=== PATIENT | male | born 1980 | race American Indian/Alaskan Native ===

== ENCOUNTER 2018-12-22 16:54 | Emergency (ER) | payer OTHER ==
--- NOTE | 2018-12-22 17:12 | Event Note ---
ED Screening Note ED Screening Note: a/c hives ? etio This initial assessment/diagnostic orders/clinical plan/treatment(s) is/are subject to change based on patients health status, clinical progression and re- assessment by fellow clinical providers in the ED. Further treatment and workup at subsequent clinical providers discretion. Patient/guardian urged not to elope from the ED as their condition may be serious if not clinically assessed and managed. Initial orders include: rx referral for follow up
--- NOTE | 2018-12-22 17:55 | Emergency Department Report ---
- General Chief complaint: Skin Rash Stated complaint: RASH ALL OVER/PAIN Time Seen by Provider: 12/22/18 17:08 Source: patient Mode of arrival: Ambulatory Limitations: No Limitations - History of Present Illness Initial comments: Patient is a 38-year-old male presents to the emergency room with complaints of a diffuse rash that began in August. He states it occurs intermittently. States the rash itches and duggan. He states he has taken Benadryl on and off but it makes him drowsy. He states he has never had this before. he states he just moved to [place] in August and began experiencing the rash after moving. States he has used different soaps and detergents from what he has used before. His only past medical history is migraines. Denies any daily medications or mumtaz rgies to medications. - Related Data Previous Rx's Medication Instructions Recorded Last Taken Type Cetirizine HCl [ZyrTEC 10mg cap] 10 mg PO DAILY #30 capsule 12/22/18 Unknown Rx Hydrocortisone [Hydrocortisone 1 applicatio TP BID #1 oint...g. 12/22/18 Unknown Rx 2.5% OINT] hydrOXYzine PAMOATE [Vistaril] 25 mg PO Q6HR PRN #14 capsule 12/22/18 Unknown Rx predniSONE [Deltasone] 40 mg PO QDAY 7 Days #14 tab 12/22/18 Unknown Rx Allergies Allergy/AdvReac Type Severity Reaction Status Date / Time No Known Allergies Allergy Unverified 12/22/18 17:08 Abscess Boil HPI - HPI Chief Complaint: Skin Rash Stated Complaint: RASH ALL OVER/PAIN Time Seen by Provider: 12/22/18 17:08 Home Medications: Previous Rx's Medication Instructions Recorded Last Taken Type Cetirizine HCl [ZyrTEC 10mg cap] 10 mg PO DAILY #30 capsule 12/22/18 Unknown Rx Hydrocortisone [Hydrocortisone 1 applicatio TP BID #1 oint...g. 12/22/18 Unknown Rx 2.5% OINT] hydrOXYzine PAMOATE [Vistaril] 25 mg PO Q6HR PRN #14 capsule 12/22/18 Unknown Rx predniSONE [Deltasone] 40 mg PO QDAY 7 Days #14 tab 12/22/18 Unknown Rx Allergies/Adverse Reactions: Allergies Allergy/AdvReac Type Severity Reaction Status Date / Time No Known Allergies Allergy Unverified 12/22/18 17:08 ED Review of Systems ROS: Stated complaint: RASH ALL OVER/PAIN Other details as noted in HPI Comment: All other systems reviewed and negative ED Past Medical Hx - Past Medical History Previous Medical History?: No - Surgical History Past Surgical History?: Yes Additional Surgical History: Right ankle surgery - Social History Smoking Status: Never Smoker Substance Use Type: None - Medications Home Medications: Home Medications Medication Instructions Recorded Confirmed Last Taken Type Cetirizine HCl [ZyrTEC 10mg cap] 10 mg PO DAILY #30 capsule 12/22/18 Unknown Rx Hydrocortisone [Hydrocortisone 1 applicatio TP BID #1 oint...g. 12/22/18 Unknown Rx 2.5% OINT] hydrOXYzine PAMOATE [Vistaril] 25 mg PO Q6HR PRN #14 capsule 12/22/18 Unknown Rx predniSONE [Deltasone] 40 mg PO QDAY 7 Days #14 tab 12/22/18 Unknown Rx ED Physical Exam - General Limitations: No Limitations General appearance: alert, in no apparent distress - Head Head exam: Present: atraumatic, normocephalic - Eye Eye exam: Present: normal appearance, PERRL, EOMI - ENT ENT exam: Present: mucous membranes moist - Neurological Exam Neurological exam: Present: alert, oriented X3 - Psychiatric Psychiatric exam: Present: normal affect, normal mood - Skin Skin exam: Present: warm, dry, urticaria (present on the abdomen, chest, and back, none on the BUE or BLE) ED Course Vital Signs 12/22/18 17:09 Temperature 98.7 F Pulse Rate 88 Respiratory 18 Rate Blood Pressure 125/80 O2 Sat by Pulse 100 Oximetry ED Medical Decision Making - Medical Decision Making Patient is a 38-year-old male presents to the emergency room with complaints of a diffuse rash that began in August. He states it occurs intermittently. States the rash itches and duggan. He states he has taken Benadryl on and off but it makes him drowsy. He states he has never had this before. he states he just moved to [place] in August and began experiencing the rash after moving. States he has used different soaps and detergents from what he has used before. His only past medical history is migraines. Denies any daily medications or aller gies to medications. vitals are normal. pt has an urticarial rash on the abdomen, chest, and back. appears to be allergy related. pt given prescriptions for prednisone, hydrocortisone ointment, zyrtec and vistaril. advised to take medication as prescribed. discussed with pt to use a dove non scented soap and a sensitive skin non scented laundry detergent. advised pt to follow up with a primary care doctor in the next 2-3 days and undergo allergy testing. - Differential Diagnosis allergic reaction, contact derm, irritant derm, urticaria Critical care attestation.: If time is entered above; I have spent that time in minutes in the direct care of this critically ill patient, excluding procedure time. ED Disposition Clinical Impression: Urticaria Disposition: - TO HOME OR SELFCARE Is pt being admited?: No Does the pt Need Aspirin: No Condition: Stable Instructions: Urticaria (ED) Additional Instructions: please take medication as prescribed. use a dove non scented soap and a sensitive skin non scented laundry detergent. Follow up with a primary care doctor in the next 2-3 days and undergo allergy testing. Prescriptions: predniSONE [Deltasone] 40 mg PO QDAY 7 Days #14 tab Hydrocortisone [Hydrocortisone 2.5% OINT] 1 applicatio TP BID #1 oint...g. hydrOXYzine PAMOATE [Vistaril] 25 mg PO Q6HR PRN #14 capsule PRN Reason: Itching Cetirizine HCl [ZyrTEC 10mg cap] 10 mg PO DAILY #30 capsule Referrals: BEBO ARMSTRONG MD [Primary Care Provider] - 2-3 Days [facility] [Outside] - 2-3 Days [facility] [Outside] - 2-3 Days Time of Disposition: 17:56 Print Language: MALAYSIAN
[2018-12-22 18:12] VITALS: BP 130/84
== END 2018-12-22 18:06 | disposition home or self-care (01) ==
LOC: ED 16:54
DX: L50.9 Urticaria, unspecified (principal); Z98.890 Other specified postprocedural states; Z79.899 Other long term (current) drug therapy
CPT/HCPCS: 99282

== ENCOUNTER 2019-04-18 21:19 | Emergency (ER) | payer SELFPAY ==
[2019-04-18 21:27] VITALS: BP 124/85
--- NOTE | 2019-04-18 21:31 | Event Note ---
ED Screening Note Date of service: 04/18/19 Time: 21:29 ED Screening Note: 38 y o male presents to ED cc of right ankle swelling and pain This initial assessment/diagnostic orders/clinical plan/treatment(s) is/are subject to change based on patients health status, clinical progression and re- assessment by fellow clinical providers in the ED. Further treatment and workup at subsequent clinical providers discretion. Patient/guardian urged not to elope from the ED as their condition may be serious if not clinically assessed and managed. Initial orders include: xr ankle
--- NOTE | 2019-04-18 22:29 | XRay Report ---
Right ankle-2 views INDICATION: swollen ankle. COMPARISON: None. IMPRESSION: Mild swelling about the ankle with no acute fracture identified. Normal alignment. Old postoperative bimalleolar change with no hardware complication. Signer Name: Geoff Emerson MD Signed: 04/18/2019 10:24 PM Workstation Name: [id number]
[2019-04-18] MEDS ORDERED: IBUPROFEN 600 MG TAB PO ONE (22:38)
[2019-04-18] MEDS ORDERED: ACETAMINOPHEN 500 MG TAB PO ONE (22:38)
--- NOTE | 2019-04-18 23:19 | Emergency Department Report ---
ED Extremity Problem HPI - General Chief complaint: Extremity Injury, Lower Stated complaint: RIGHT ANKLE SWOLLEN/PAINFUL Source: patient Mode of arrival: Ambulatory Limitations: No Limitations - History of Present Illness Initial comments: Patient is up at 8-year-old male with a history of chronic right ankle pain from an old right ankle injury and status post prosthetic metallic plate placement presents to the ED with acute suspicion of his chronic right ankle pain and swelling for the last 12 hours. Patient states that he woke up with severe right ankle pennate significant swelling and was unable dwell weight over 12 hours ago. Patient states that he has been taking ibuprofen intermittently for the pain. Patient denies fall, traumatic injury, nausea, vomiting, chest pain or shortness of breath, numbness and tingling or weakness of right upper quadrant food. Patient however states that his job entails walking on floors and this may have aggravated his uncle pain. Patient states that the pain is worse with any active range of motion or palpation or weight-bearing. MD Complaint: extremity pain (right ankle), extremity swelling (right ankle), joint swelling (right ankle), joint paint (right ankle) -: Sudden, hour(s) (12) Location: right (right ankle), lower extremity (right ankle) History of Same: Yes -: Yes arthralgia Severity scale (0 -10): 7 Quality: aching, sharp Consistency: constant Improves with: nothing Worsens with: weight bearing, walking, exertion, palpation Associated Symptoms: denies other symptoms, arthralgias. denies: chest pain, shortness of breath, fever, myalgias, rash, other - Related Data Previous Rx's Medication Instructions Recorded Last Taken Type Cetirizine HCl [ZyrTEC 10mg cap] 10 mg PO DAILY #30 capsule 12/22/18 Unknown Rx Hydrocortisone [Hydrocortisone 1 applicatio TP BID #1 oint...g. 12/22/18 Unknown Rx 2.5% OINT] hydrOXYzine PAMOATE [Vistaril] 25 mg PO Q6HR PRN #14 capsule 12/22/18 Unknown Rx predniSONE [Deltasone] 40 mg PO QDAY 7 Days #14 tab 12/22/18 Unknown Rx Ibuprofen [Motrin] 800 mg PO Q8HR PRN #30 tablet 04/18/19 Unknown Rx predniSONE [Deltasone] 40 mg PO QDAY #10 tab 04/18/19 Unknown Rx tiZANidine [Zanaflex 4mg TAB] 4 mg PO Q8H PRN #21 tablet 04/18/19 Unknown Rx traMADoL [Ultram] 50 mg PO Q6HR PRN #12 tablet 04/18/19 Unknown Rx Allergies Allergy/AdvReac Type Severity Reaction Status Date / Time No Known Allergies Allergy Verified 04/18/19 21:23 ED Review of Systems ROS: Stated complaint: RIGHT ANKLE SWOLLEN/PAINFUL Other details as noted in HPI Constitutional: denies: chills, fever Eyes: denies: eye pain, eye discharge, vision change ENT: denies: ear pain, throat pain Respiratory: denies: cough, shortness of breath, wheezing Cardiovascular: denies: chest pain, palpitations Endocrine: no symptoms reported Gastrointestinal: denies: abdominal pain, nausea, diarrhea Genitourinary: denies: urgency, dysuria Musculoskeletal: joint swelling (right ankle), arthralgia (right ankle). denies: back pain Skin: denies: rash, lesions Neurological: denies: headache, weakness, paresthesias Psychiatric: denies: anxiety, depression Hematological/Lymphatic: denies: easy bleeding, easy bruising ED Past Medical Hx - Surgical History Additional Surgical History: Right ankle surgery - Social History Smoking Status: Never Smoker Substance Use Type: Marijuana - Medications Home Medications: Home Medications Medication Instructions Recorded Confirmed Last Taken Type Cetirizine HCl [ZyrTEC 10mg cap] 10 mg PO DAILY #30 capsule 12/22/18 Unknown Rx Hydrocortisone [Hydrocortisone 1 applicatio TP BID #1 oint...g. 12/22/18 Unknown Rx 2.5% OINT] hydrOXYzine PAMOATE [Vistaril] 25 mg PO Q6HR PRN #14 capsule 12/22/18 Unknown Rx predniSONE [Deltasone] 40 mg PO QDAY 7 Days #14 tab 12/22/18 Unknown Rx Ibuprofen [Motrin] 800 mg PO Q8HR PRN #30 tablet 04/18/19 Unknown Rx predniSONE [Deltasone] 40 mg PO QDAY #10 tab 04/18/19 Unknown Rx tiZANidine [Zanaflex 4mg TAB] 4 mg PO Q8H PRN #21 tablet 04/18/19 Unknown Rx traMADoL [Ultram] 50 mg PO Q6HR PRN #12 tablet 04/18/19 Unknown Rx ED Physical Exam - General Limitations: No Limitations General appearance: alert, in no apparent distress - Head Head exam: Present: atraumatic, normocephalic, normal inspection - Eye Eye exam: Present: normal appearance, PERRL, EOMI Pupils: Present: normal accommodation - ENT ENT exam: Present: normal exam, normal orophraynx, mucous membranes moist, TM's normal bilaterally, normal external ear exam - Neck Neck exam: Present: normal inspection, full ROM - Respiratory Respiratory exam: Present: normal lung sounds bilaterally. Absent: respiratory distress, wheezes, rales, stridor, chest wall tenderness, accessory muscle use, prolonged expiratory - Cardiovascular Cardiovascular Exam: Present: regular rate, normal rhythm, normal heart sounds. Absent: systolic murmur, diastolic murmur, rubs, gallop - GI/Abdominal GI/Abdominal exam: Present: soft, normal bowel sounds. Absent: tenderness, guarding, hypoactive bowel sounds, mass - Rectal Rectal exam: Present: deferred - Extremities Exam Extremities exam: Present: normal inspection, tenderness (palpable right ankle tenderness with moderate swelling and limited range of motion due to pain), normal capillary refill, joint swelling (right ankle swelling). Absent: full ROM (Limited range of motion due to pain) - Back Exam Back exam: Present: normal inspection, full ROM. Absent: tenderness, muscle spasm - Neurological Exam Neurological exam: Present: alert, oriented X3, CN II-XII intact, normal gait, reflexes normal - Psychiatric Psychiatric exam: Present: normal affect, normal mood - Skin Skin exam: Present: warm, dry, intact, normal color. Absent: rash ED Course Vital Signs 04/18/19 21:25 Temperature 97.4 F L Pulse Rate 64 Respiratory 18 Rate Blood Pressure 124/85 O2 Sat by Pulse 98 Oximetry ED Medical Decision Making - Radiology Data Radiology results: report reviewed, image reviewed Findings [facility] [address] [place] [address] XRay Report Signed Patient: CARRIE WYLIE MR#: [id number] : 1980 Acct:[id number] Age/Sex: 38 / M ADM Date: 04/18/19 Loc: ED Attending Dr: Ordering Physician: ED MD LEE ANN Date of Service: 04/18/19 Procedure(s): XR ankle 2V RT Accession Number(s): [id number] cc: ED DOC, Fluoro Time In Minutes: Right ankle-2 views INDICATION: swollen ankle. COMPARISON: None. IMPRESSION: Mild swelling about the ankle with no acute fracture identified. Normal alignment. Old postoperative bimalleolar change with no hardware complication. Signer Name: Geoff Emerson MD Signed: 04/18/2019 10:24 PM Workstation Name: [id number] Transcribed By: KANCHAN Dictated By: Geoff Emerson MD Electronically Authenticated By: Geoff Emerson MD Signed Date/Time: 04/18/19 2509 - Medical Decision Making This is a 38-year-old male with a history of chronic right ankle pain from an old injury presents to the ED with acute exacerbation of the right ankle pain for the last 12 loss. In the ED, patient is alert and oriented 3 in destruction and distress but appears to be in pain. Patient was treated for pain in the ED and right ankle x-ray shows mild swelling about the ankle with no acute fracture identified. Normal alignment. Old postoperative bimalleolar change with no hardware complication. Patient is a right ankle splint and Donnie wrap and the patient discharged home on pain medications and muscle relaxants and advised to follow-up with his primary care physician in 5-7 days for reevaluation or return to the ED immediately if symptoms get worse. - Differential Diagnosis Ankle sprain; Muscle strain; DJD of ankle; Ankle fracture Critical care attestation.: If time is entered above; I have spent that time in minutes in the direct care of this critically ill patient, excluding procedure time. 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 Return to the ED immediately if symptoms get worse. Prescriptions: predniSONE [Deltasone] 40 mg PO QDAY #10 tab Ibuprofen [Motrin] 800 mg PO Q8HR PRN #30 tablet PRN Reason: Pain , Severe (7-10) traMADoL [Ultram] 50 mg PO Q6HR PRN #12 tablet PRN Reason: Pain tiZANidine [Zanaflex 4mg TAB] 4 mg PO Q8H PRN #21 tablet PRN Reason: Muscle Spasm Referrals: [facility] [Outside] - 3-5 Days Forms: Work/School Release Form(ED) Time of Disposition: 23:24 Print Language: MALTESE
== END 2019-04-18 23:40 | disposition home or self-care (01) ==
LOC: ED 21:19
DX: S93.401A Sprain of unspecified ligament of right ankle, initial encounter (principal); M19.071 Primary osteoarthritis, right ankle and foot; Z98.890 Other specified postprocedural states; F12.10 Cannabis abuse, uncomplicated; Z79.1 Long term (current) use of non-steroidal anti-inflammatories (NSAID); Z79.899 Other long term (current) drug therapy; X58.XXXA Exposure to other specified factors, initial encounter; Y93.89 Activity, other specified; Y92.89 Other specified places as the place of occurrence of the external cause; Y99.8 Other external cause status

== ENCOUNTER 2020-04-27 11:47 | Emergency (ER) | payer SELFPAY ==
[2020-04-27 12:08] VITALS: BP 139/94
--- NOTE | 2020-04-27 14:10 | Emergency Department Report ---
Chief Complaint: Extremity Problem,Nontraumatic Stated Complaint: WORK INJURY/RT ANKLE PAIN Time Seen by Provider: 04/27/20 14:05 - HPI History of Present Illness: Patient is a 39-year-old male presents emergency room for a "return to work note." He states that last week he was in the car with a coworker who was exposed to COVID-19. He did not go receive testing and has not been quarantining. He states that his job states he needs a return to work note. Patient has chronic right ankle edema and pain that is intermittent from a prior injury. He was evaluated emergency department on 04/18/2020 and had a x-ray at that time of the ankle which showed IMPRESSION: Mild swelling about the ankle with no acute fracture identified. Normal alignment. Old postoperative bimalleolar change with no hardware complication. he is not here regarding the ankle. he is here for a return to work note. vss on exam: Non toxic appearing, no acute distress atraumatic, normocephalic normal appearance of the eyes, EOMI, no periorbital edema or ecchymosis moist mucus membranes no respiratory distress, no accessory muscle use A&O x4, no focal neuro deficit, ambulating without difficulty skin is warm, dry, intact Patient is presenting just for a return to work note Advised patient that if he had to call out of work then he needs to follow-up with a primary care doctor in order to be cleared to return to work He has no complaints at this time Patient given the appropriate resources Discuss strict return precautions Medical screening examination performed and there is no threat to life or limb at this time - Exam Vital Signs: Vital Signs 04/27/20 12:05 Temperature 98.9 F Pulse Rate 104 H Respiratory 20 Rate Blood Pressure 139/94 O2 Sat by Pulse 96 Oximetry MSE screening note: Focused history and physical exam performed. Due to findings the following was ordered: ED Disposition for MSE Clinical Impression: Encounter for medical screening examination Disposition: Z- MED SCREENING EXAM-LEFT Is pt being admited?: No Does the pt Need Aspirin: No Condition: Stable Additional Instructions: Please follow-up with a clinic or the health department in order to receive a return to work note. Return to emergency room for any new or worsening symptoms. walk in clinic: [facility] Address: [address] [place] [id number] Referrals: ZEYNEP CAMPOS MD [Staff Physician] - 2-3 Days [facility] [Provider Group] - 2-3 Days [facility] [Outside] - 2-3 Days Time of Disposition: 14:08 Print Language: IRISH
== END 2020-04-27 14:15 | disposition left against medical advice (07) ==
LOC: ED 11:47
DX: M25.571 Pain in right ankle and joints of right foot (principal); Z53.21 Procedure and treatment not carried out due to patient leaving prior to being seen by health care provider

== ENCOUNTER 2021-07-08 07:58 | Emergency (ER) | payer SELFPAY ==
--- NOTE | 2021-07-08 08:49 | XRay Report ---
RIGHT SHOULDER 3 VIEWS INDICATION / CLINICAL INFORMATION: pain COMPARISON: None available. FINDINGS: BONES / JOINT(S): No acute fracture or subluxation. No significant arthritis. SOFT TISSUES: No significant abnormality. ADDITIONAL FINDINGS: None. Signer Name: Nik Moore MD Signed: 07/08/2021 8:45 AM Workstation Name: [id number]
[2021-07-08] MEDS ORDERED: dexAMETHasone 4 MG/ML VIAL IM ONE (09:02)
--- NOTE | 2021-07-08 09:05 | Emergency Department Report ---
ED General Adult HPI - General Chief complaint: Chest Pain Stated complaint: RT SHOULDER RT PINKY PAIN Time Seen by Provider: 07/08/21 08:06 Source: patient Mode of arrival: Ambulatory Limitations: No Limitations - History of Present Illness Initial comments: pt presents to ed with right shoulder pain , possible injury at work, few weeks ago, -: Sudden, week(s) (3) Location: upper extremity Radiation: distal Severity scale (0 -10): 5 Quality: aching Consistency: constant Associated Symptoms: denies other symptoms - Related Data Previous Rx's Medication Instructions Recorded Last Taken Type Cetirizine HCl [ZyrTEC 10mg cap] 10 mg PO DAILY #30 capsule 12/22/18 Unknown Rx Hydrocortisone [Hydrocortisone 1 applicatio TP BID #1 oint...g. 12/22/18 Unknown Rx 2.5% OINT] hydrOXYzine PAMOATE [Vistaril] 25 mg PO Q6HR PRN #14 capsule 12/22/18 Unknown Rx predniSONE [Deltasone] 40 mg PO QDAY 7 Days #14 tab 12/22/18 Unknown Rx Ibuprofen [Motrin] 800 mg PO Q8HR PRN #30 tablet 04/18/19 Unknown Rx predniSONE [Deltasone] 40 mg PO QDAY #10 tab 04/18/19 Unknown Rx tiZANidine [Zanaflex 4mg TAB] 4 mg PO Q8H PRN #21 tablet 04/18/19 Unknown Rx traMADoL [Ultram] 50 mg PO Q6HR PRN #12 tablet 04/18/19 Unknown Rx Cyclobenzaprine HCl [Flexeril 5 MG 5 mg PO TID #14 tab 07/08/21 Unknown Rx TAB] Allergies Allergy/AdvReac Type Severity Reaction Status Date / Time No Known Allergies Allergy Verified 04/18/19 21:23 ED Review of Systems ROS: Stated complaint: RT SHOULDER RT PINKY PAIN Other details as noted in HPI Constitutional: denies: chills, fever Eyes: denies: eye pain, eye discharge, vision change ENT: denies: ear pain, throat pain Respiratory: denies: cough, shortness of breath, wheezing Cardiovascular: denies: chest pain, palpitations Endocrine: no symptoms reported Gastrointestinal: denies: abdominal pain, nausea, diarrhea Genitourinary: denies: urgency, dysuria Musculoskeletal: denies: back pain, joint swelling, arthralgia Skin: denies: rash, lesions Neurological: denies: headache, weakness, paresthesias Psychiatric: denies: anxiety, depression Hematological/Lymphatic: denies: easy bleeding, easy bruising ED Past Medical Hx - Past Medical History Previous Medical History?: No Hx Hypertension: No Hx Headaches / Migraines: Yes - Surgical History Additional Surgical History: Right ankle surgery - Social History Smoking Status: Never Smoker Substance Use Type: Marijuana - Medications Home Medications: Home Medications Medication Instructions Recorded Confirmed Last Taken Type Cetirizine HCl [ZyrTEC 10mg cap] 10 mg PO DAILY #30 capsule 12/22/18 Unknown Rx Hydrocortisone [Hydrocortisone 1 applicatio TP BID #1 oint...g. 12/22/18 Unknown Rx 2.5% OINT] hydrOXYzine PAMOATE [Vistaril] 25 mg PO Q6HR PRN #14 capsule 12/22/18 Unknown Rx predniSONE [Deltasone] 40 mg PO QDAY 7 Days #14 tab 12/22/18 Unknown Rx Ibuprofen [Motrin] 800 mg PO Q8HR PRN #30 tablet 04/18/19 Unknown Rx predniSONE [Deltasone] 40 mg PO QDAY #10 tab 04/18/19 Unknown Rx tiZANidine [Zanaflex 4mg TAB] 4 mg PO Q8H PRN #21 tablet 04/18/19 Unknown Rx traMADoL [Ultram] 50 mg PO Q6HR PRN #12 tablet 04/18/19 Unknown Rx Cyclobenzaprine HCl [Flexeril 5 MG 5 mg PO TID #14 tab 07/08/21 Unknown Rx TAB] ED Physical Exam - General Limitations: No Limitations General appearance: alert, in no apparent distress - Head Head exam: Present: atraumatic, normocephalic - Eye Eye exam: Present: normal appearance - ENT ENT exam: Present: mucous membranes moist - Neck Neck exam: Present: normal inspection - Respiratory Respiratory exam: Present: normal lung sounds bilaterally. Absent: respiratory distress - Cardiovascular Cardiovascular Exam: Present: regular rate, normal rhythm. Absent: systolic murmur, diastolic murmur, rubs, gallop - GI/Abdominal GI/Abdominal exam: Present: soft, normal bowel sounds - Rectal Rectal exam: Present: deferred - Extremities Exam Extremities exam: Present: normal inspection - Expanded Upper Extremity Exam Right Shoulder Exam: Present: tenderness Upper Arm exam: Present: normal inspection. Absent: full ROM, abrasion, laceration - Back Exam Back exam: Present: normal inspection - Neurological Exam Neurological exam: Present: alert, oriented X3 - Psychiatric Psychiatric exam: Present: normal affect, normal mood - Skin Skin exam: Present: warm, dry, intact, normal color. Absent: rash ED Course Vital Signs 07/08/21 08:03 Temperature 98.4 F Pulse Rate 86 Respiratory 16 Rate Blood Pressure 165/113 [Left] O2 Sat by Pulse 99 Oximetry Critical care attestation.: If time is entered above; I have spent that time in minutes in the direct care of this critically ill patient, excluding procedure time. ED Disposition Clinical Impression: Right shoulder pain, Rotator cuff (capsule) sprain Disposition: HOME / SELF CARE / HOMELESS Is pt being admited?: No Does the pt Need Aspirin: No Condition: Stable Instructions: Shoulder Pain, Shoulder Pain, Gikh-[id number] Prescriptions: Cyclobenzaprine HCl [Flexeril 5 MG TAB] 5 mg PO TID #14 tab
[2021-07-08 09:54] VITALS: BP 144/97
== END 2021-07-08 10:02 | disposition home or self-care (01) ==
LOC: ED 07:58
DX: S43.421A Sprain of right rotator cuff capsule, initial encounter (principal); G43.909 Migraine, unspecified, not intractable, without status migrainosus; Z98.890 Other specified postprocedural states; F12.90 Cannabis use, unspecified, uncomplicated; X58.XXXA Exposure to other specified factors, initial encounter; Y93.89 Activity, other specified; Y92.89 Other specified places as the place of occurrence of the external cause; Y99.0 Civilian activity done for income or pay
CPT/HCPCS: 73030; 96372; 99283; J1100

== ENCOUNTER 2021-08-12 16:13 | Outpatient (CLI) | payer OTHER ==
--- NOTE | 2021-08-12 16:41 | XRay Report ---
Right hand 3 views INDICATION: Right hand pain FINDINGS: MCP joints and IP joints appear normal. Carpal bone alignment appears normal. No acute frac ture or dislocation. IMPRESSION: No acute findings are seen. Signer Name: Ronnell Connell MD Signed: 08/12/2021 4:36 PM Workstation Name: [id number]
== END 2021-08-12 16:14 | disposition home or self-care (01) ==
LOC: XRAY 16:13
PROVIDERS: ATTEND Internal Medicine
DX: M79.641 Pain in right hand (principal)